=== PATIENT | female | born 1995 | race American Indian/Alaskan Native ===

== ENCOUNTER 2019-01-09 14:45 | Emergency (ER) | payer OTHER ==
--- NOTE | 2019-01-09 15:06 | Event Note ---
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 Further treatment and workup at subsequent clinical providers discretion. Patient/guardian urged not to elope from the ED as their condition may be serious if not clinically assessed and managed. Initial orders include: SANTINO hollis
[2019-01-09 16:11] LABS: Basophils % (Auto) 0.6 % (0.0-1.8); Eosinophils % (Auto) 0.5 % (0.0-4.3); Hematocrit 32.9 % (30.3-42.9); Hemoglobin 10.9 gm/dl (10.1-14.3); Lymphocytes # (Auto) 1.6 K/mm3 (1.2-5.4); Lymphocytes % (Auto) 27.4 % (13.4-35.0); Mean Corpuscular HGB Conc 33 % (30-34); Mean Corpuscular Volume 87 fl (79-97); Monocytes # (Auto) 0.4 K/mm3 (0.0-0.8); Monocytes % (Auto) 6.7 % (0.0-7.3); Platelet Count 314 K/mm3 (140-440); Red Cell Distribution Width 14.6 % (13.2-15.2)
[2019-01-09 16:34] LABS: BUN/Creatinine Ratio 12; Blood Urea Nitrogen 7 mg/dL (7-17); Calcium 8.7 mg/dL (8.4-10.2); Hemolysis Index 2
[2019-01-09 18:13] LABS: HCG Qualitative,Urine Negative (Negative)
[2019-01-09 18:21] LABS: Bilirubin,Urine NEG (Negative); Blood,Urine MOD (Negative); Color,Urine Yellow (Yellow); Mucus,Urine 3+ /HPF; Protein,Urine <15 mg/dL mg/dL (Negative); Urobilinogen,Urine < 2.0 mg/dL (<2.0)
[2019-01-09 18:24] LABS: Amphetamine Screen,Urine PRESUMPTIVE NEGATIVE; Benzodiazepines Screen,Urine PRESUMPTIVE NEGATIVE; Cocaine Screen,Urine PRESUMPTIVE NEGATIVE; Methadone Screen,Urine PRESUMPTIVE NEGATIVE; Opiate Screen,Urine PRESUMPTIVE NEGATIVE
[2019-01-09 18:41] LABS: Cannabinoid Screen,Urine PRESUMPTIVE POSITIVE
--- NOTE | 2019-01-09 19:08 | Emergency Department Report ---
HPI - General Chief Complaint: Psych Time Seen by Provider: 01/09/19 15:01 - HPI HPI: This is a 23-year-old female who presents to the emergency department for a mental health evaluation. She has no diagnosed medical or psychiatric history. The patient admits to depression that has been going on since August but has worsened recently. She talks about certain stressors in her life such as a job, finances, personal relationships, as the source of her depression. The patient says that she recently "hit rock bottom" and came to the emergency department today in order to "talk to someone about it." She denies any suicidal or homicidal ideations but just feels hopeless and in despair. She denies any auditory or visual hallucinations. She has a brother who has bipolar disorder and therefore says that she knows how important it is to seek help with mental health issues. She is not a tobacco smoker and denies any illicit drug use other than some intermittent marijuana use. ED Past Medical Hx - Past Medical History Previous Medical History?: No - Surgical History Additional Surgical History: TONSILLECTOMY - Social History Smoking Status: Never Smoker Substance Use Type: None ED Review of Systems ROS: Stated complaint: MH EVALUATION Other details as noted in HPI Comment: All other systems reviewed and negative Constitutional: denies: chills, fever Eyes: denies: eye pain, vision change ENT: denies: ear pain, throat pain Respiratory: denies: cough, shortness of breath Cardiovascular: denies: chest pain, palpitations Gastrointestinal: denies: abdominal pain, vomiting Genitourinary: denies: dysuria, discharge Musculoskeletal: denies: back pain, arthralgia Neurological: denies: headache, weakness Psychiatric: depression. denies: auditory hallucinations, visual hallucinations, homicidal thoughts, suicidal thoughts Physical Exam - Physical Exam Vital Signs: Vital Signs 01/09/19 15:01 Temperature 99.3 F Pulse Rate 71 Respiratory 16 Rate Blood Pressure 125/84 O2 Sat by Pulse 99 Oximetry Physical Exam: GENERAL: The patient is well-developed well-nourished. HENT: Normocephalic. Atraumatic. Patient has moist mucous membranes. EYES: Extraocular motions are intact. NECK: Supple. Trachea is midline. CHEST/LUNGS: Clear to auscultation. There is no respiratory distress noted. HEART/CARDIOVASCULAR: Regular. There is no tachycardia. There is no murmur. ABDOMEN: Abdomen is soft, nontender. Patient has normal bowel sounds. There is no abdominal distention. SKIN: Skin is warm and dry. NEURO: The patient is awake, alert, and oriented. The patient is cooperative. The patient has no focal neurologic deficits. The patient has normal speech. MUSCULOSKELETAL: There is no tenderness or deformity. There is no limitation range of motion. There is no evidence of acute injury. ED Course Vital Signs 01/09/19 15:01 Temperature 99.3 F Pulse Rate 71 Respiratory 16 Rate Blood Pressure 125/84 O2 Sat by Pulse 99 Oximetry ED Medical Decision Making - Lab Data Result diagrams: 01/09/19 15:38 01/09/19 15:38 - Medical Decision Making This patient presents with some depression but denies any suicidal or homicidal ideations, or any hallucinations. The patient does admit to hitting rock bottom, she definitely denies any plans to harm herself and says "I really do enjoy my life." However the patient does appear intent on getting some type of therapy or treatment started. She was seen by the psychiatric electronic component processor, Lyudmila, who agrees with the assessment that the patient is not a 1013 candidate at this moment and will help facilitate a voluntary transfer and a voluntary inpatient admission to [facility]. - Differential Diagnosis depression, bipolar disorder, substance abuse Critical Care Time: No Critical care attestation.: If time is entered above; I have spent that time in minutes in the direct care of this critically ill patient, excluding procedure time. ED Disposition Clinical Impression: Medical clearance for psychiatric admission Depression Qualifiers: Depression Type: unspecified Qualified Code(s): F32.9 - Major depressive disorder, single episode, unspecified Disposition: [id number]/[id number] PSY HOSP/PSY UNIT Is pt being admited?: No Condition: Stable Referrals: SHANTELL ELKINS MD [Primary Care Provider] - 3-5 Days Time of Disposition: 19:09
[2019-01-09 19:34] VITALS: BP 108/69
== END 2019-01-09 22:51 ==
LOC: ED 14:45
DX: F32.9 Major depressive disorder, single episode, unspecified (principal); Z90.89 Acquired absence of other organs
CPT/HCPCS: 36415; 80048; 80307; 80320; 81001; 81025; 84443; 85025; G0480